=== PATIENT | female | born 1955 | race Caucasian/White ===

== ENCOUNTER 2020-12-31 07:17 | Day surgery (SDC) | payer OTHER ==
--- NOTE | 2020-12-28 11:31 | EKG ---
Test Date: 2020-12-28 Test Time: 10:09:27 [place] Supervisor: DOMENIC MEASUREMENT RESULTS: Intervals: Rate: 71 MD: 144 QRSD: 72 QT: 392 QTc: 425 [place]: P: 71 MD: 144 QRS: 64 T: 69 INTERPRETIVE STATEMENTS: Normal sinus rhythm with sinus arrhythmia Normal ECG No previous ECG available for comparison Electronically Signed On 12-28-20 11:30:55 CDT by Chandler Osborn
[2020-12-31] MEDS ORDERED: Ringers Lactate 1,000 ML IV ONE (07:58)
[2020-12-31] MEDS ORDERED: propofoL 200 MG/20 ML VIAL IV ONE (09:02)
[2020-12-31] MEDS ORDERED: MIDAZOLAM HCL 2 MG/2 ML INJ ONE (09:02)
[2020-12-31] MEDS ORDERED: LIDOCAINE 2% MPF 5 ML VIAL ONE (09:02)
[2020-12-31] MEDS ORDERED: FENTANYL CITR 100 MCG/2 ML ONE (09:02)
[2020-12-31] MEDS ORDERED: ONDANSETRON 4 MG/2 ML VIAL ONE (09:02)
[2020-12-31] MEDS ORDERED: NEOSTIGMINE 1 MG/ML -5 ML ONE (09:14)
[2020-12-31] MEDS ORDERED: ROCURONIUM 50 MG/5 ML VIAL IV ONE (09:14)
[2020-12-31] MEDS ORDERED: GLYCOPYRROLATE 0.2 MG/ML SYR ONE (09:14)
[2020-12-31] MEDS ORDERED: LIDOCAINE 1% W/EPI 1:100,000 MDV 20 ML VIAL ONE (09:20)
[2020-12-31] MEDS ORDERED: EPINEPHRINE/PF 1 MG/ML AMP ONE (09:20)
[2020-12-31] MEDS ORDERED: dexAMETHasone 10 MG/ML VIAL ONE (09:20)
--- NOTE | 2020-12-31 10:24 | P.BOP ---
Preoperative diagnosis: vallecular cyst x 2 Postoperative diagnosis: same Primary procedure: DL with telescope and excision of lesions x 2 Spray Machine Tender: NONE,NONE Estimated blood loss: 5ml Specimen: vallecular cyst x 2 Findings: 1 cm and 4mm vallecular cysts Anesthesia: General Complications: None Implants: none Fluids & blood products: see anesthesia records Transferred to: Recovery Room Condition: Good
[2020-12-31] MEDS: ACETAMINOPHEN 500 MG TAB ONE ×2 (10:28→10:42)
--- NOTE | 2020-12-31 11:03 | OP ---
Date of Procedure: 12/31/2020 Surgeon: Hattie Bustamante MD Preoperative Diagnosis: Vallecular cyst x2. Postoperative Diagnosis: Vallecular cyst x2. Procedure: Direct laryngoscopy with telescope and excision of lesion consistent with vallecular cyst x2. Anesthesia: General via oral endotracheal tube. Blood Loss: 5 mL. Surgical Findings: A 1 cm right vallecular cyst and 4 mm base of tongue/vallecular cyst. Description Of Procedure: The patient was brought to the operating room. She was placed under gener al anesthesia via oral endotracheal tube. A shoulder roll was placed. The neck was extended with doherty pport of the head. A rubber tooth guard was placed to protect the upper dentition. A Kade-Berci l aryngoscope fitted with a 15-degree rigid telescope was used to perform a direct laryngoscopy. Photo documentation of the large cyst was made, but the diameter and shape of the laryngoscope was insuffi cient to allow for adequate intervention. The Kade-Berci was then removed and a DocASAP laryngosc ope was used to perform a direct laryngoscopy with good visualization of the vallecula. The laryngos cope was placed into suspension and the area around the cyst was carefully suctioned in order to expl ore its attachment. The cyst was grasped with a laryngeal alligator and a straight and left and righ t biting laryngeal scissors were used to incise the mucosa and elevate the cyst from the underlying p erichondrium of the epiglottis. Once the lesion was completely removed, a pledget was placed in the surgical defect to provide hemostasis. The adjacent smaller cyst was likewise identified, grasped, a nd removed in a similar manner using laryngeal scissors. The pledgets were removed and replaced with epinephrine-soaked pledgets and left for several minutes to aid in hemostasis. After removal of the pledgets, the area appeared to be hemostatic. The 15-degree rigid endoscope was used to provide verito to documentation of the surgical site after removal of the cysts. The laryngoscope and all other ins trumentation including the tooth guard were removed and the patient was returned to care of Anesthesi a for awakening and extubation in the operating room, which proceeded without difficulty. Complications: None. Disposition: The patient will be discharged home later today and follow up with Dr. Bustamante in about 10 days to evaluate healing. The patient can resume a soft or liquid diet as tolerated. She can ta ke Tylenol or ibuprofen as needed for her sore throat and contact Dr. Bustamante's office if a stronger pain medication is necessary. ROCIO Voice ID: [id number] Report ID: [id number]
[2020-12-31 11:26] VITALS: BP 134/64; TEMP 97.8; O2SAT 100
== END 2020-12-31 11:10 | disposition home or self-care (01) ==
LOC: OR 07:17
PROVIDERS: ATTEND Otolaryngology
PROC: 0CBS8ZZ Excision of Larynx, Via Natural or Artificial Opening Endoscopic (ICD-10-PCS; principal; 2020-12-31 08:45)
DX: J38.7 Other diseases of larynx (principal); D10.5 Benign neoplasm of other parts of oropharynx; R13.10 Dysphagia, unspecified; Z20.822 Contact with and (suspected) exposure to COVID-19
CPT/HCPCS: 93005; 88305; 31540; U0002; J2704; J0171; J2250; J3010; J1100; J2710; J7120; J2405